=== PATIENT | female | born 1990 | race Caucasian/White ===

== ENCOUNTER 2018-09-22 07:57 | Outpatient (CLI) | payer OTHER ==
[2018-09-22 08:23] LABS: BASOPHILS # (AUTO) 0.1 K/uL (0.00-0.22); EOSINOPHILS # (AUTO) 0.2 K/uL (0-0.4); EOSINOPHILS % (AUTO) 2.4 % (0.0-4.0); HEMATOCRIT 41.6 % (36-48); HEMOGLOBIN 13.7 g/dL (12.0-16.0); LYMPHOCYTES # (AUTO) 1.8 K/uL (2.5-16.5); LYMPHOCYTES % (AUTO) 29.2 % (20.5-51.1); MEAN CORPUSCULAR HEMOGLOBIN 29 pg (27-31); MEAN CORPUSCULAR HGB CONC 33 g/dL (33-37); MONOCYTES # (AUTO) 0.5 K/uL (0.8-1.0); MONOCYTES % (AUTO) 7.2 % (1.7-9.3); NEUTROPHILS # (AUTO) 3.8 K/uL (1.8-7.7); NEUTROPHILS % (AUTO) 60.2 % (42.2-75.2); PLATELET COUNT (AUTO) 200 K/uL (140-450); RED BLOOD CELL COUNT(AUTO) 4.68 MIL/uL (4.20-5.40); WHITE BLOOD COUNT (AUTO) 6.3 K/uL (4.8-10.8)
[2018-09-22 10:03] LABS: ANION GAP 12.6 (8-16); CARBON DIOXIDE 25.4 mmol/L (21-32); CREATININE 0.6 mg/dL (0.6-1.3); TOTAL BILIRUBIN 0.3 mg/dL (0.0-1.0)
[2018-09-22 10:04] LABS: ALBUMIN 4.1 g/dL (3.4-5.0); CHOL/HDL RATIO 2.3 (1-4.5); FREE T4 (FREE THYROXINE) 1.01 ng/dL (0.76-1.46); THYROID STIMULATING HORMONE 1.18 uIU/mL (0.34-3.74)
[2018-09-22 10:05] LABS: LDL (CALC) 60.2 mg/dL (60-100)
== END 2018-09-22 20:43 | disposition home or self-care (01) ==
LOC: MLB 07:57
PROVIDERS: ATTEND Internal Medicine Geriatric Medicine
DX: Z00.00 Encounter for general adult medical examination without abnormal findings (principal)
CPT/HCPCS: 36415; 80053; 82306; 84439; 84443; 85025

== ENCOUNTER 2019-11-23 07:40 | Outpatient (CLI) | payer OTHER ==
[2019-12-02 13:35] LABS: CARBON DIOXIDE 25.4 mmol/L (21-32)
[2019-12-02 13:36] LABS: ANION GAP 12.6 (8-16)
[2019-12-02 13:38] LABS: ALBUMIN 4.1 g/dL (3.4-5.0); CREATININE 0.6 mg/dL (0.6-1.3); TOTAL BILIRUBIN 0.3 mg/dL (0.0-1.0)
[2019-12-02 13:39] LABS: CHOL/HDL RATIO 2.3 (1-4.5); THYROID STIMULATING HORMONE 1.18 uIU/mL (0.34-3.74)
[2019-12-02 14:04] LABS: HEMATOCRIT 41.6 % (36-48); HEMOGLOBIN 13.7 g/dL (12.0-16.0); RED BLOOD CELL COUNT(AUTO) 4.68 MIL/uL (4.20-5.40); WHITE BLOOD COUNT (AUTO) 6.3 K/uL (4.8-10.8)
[2019-12-02 14:05] LABS: EOSINOPHILS % (AUTO) 2.4 % (0.0-4.0); LYMPHOCYTES % (AUTO) 29.2 % (20.5-51.1); MEAN CORPUSCULAR HEMOGLOBIN 29 pg (27-31); MEAN CORPUSCULAR HGB CONC 33 g/dL (33-37); MONOCYTES % (AUTO) 7.2 % (1.7-9.3); NEUTROPHILS % (AUTO) 60.2 % (42.2-75.2); PLATELET COUNT (AUTO) 200 K/uL (140-450)
[2019-12-02 14:06] LABS: BASOPHILS # (AUTO) 0.1 K/uL (0.00-0.22); EOSINOPHILS # (AUTO) 0.2 K/uL (0-0.4); LYMPHOCYTES # (AUTO) 1.8 K/uL (2.5-16.5); MONOCYTES # (AUTO) 0.5 K/uL (0.8-1.0); NEUTROPHILS # (AUTO) 3.8 K/uL (1.8-7.7)
[2019-12-03 12:06] LABS: T4 FREE (DIRECT) 1.44 ng/ml (0.82-1.77); TRIIODOTHYRONINE FREE 3.1 pg/mL (2.0 - 4.4)
== END 2019-11-23 20:14 | disposition home or self-care (01) ==
LOC: MLB 07:40
PROVIDERS: ATTEND Internal Medicine Geriatric Medicine
DX: Z00.00 Encounter for general adult medical examination without abnormal findings (principal)
CPT/HCPCS: 36415; 80053; 82306; 84439; 84443; 84480; 84481; 85025; 86376

== ENCOUNTER 2019-12-15 15:20 | Outpatient (CLI) | payer OTHER | END 2019-12-15 19:38 | disposition home or self-care (01) | LOC: MUS 15:20 | PROVIDERS: ATTEND Internal Medicine Geriatric Medicine | DX: E04.1 Nontoxic single thyroid nodule (principal) | CPT/HCPCS: 76536; Q0092 ==